=== PATIENT | male | born 1990 | race American Indian/Alaskan Native ===

== ENCOUNTER 2022-02-14 14:38 | Emergency (ER) | payer MEDICAID, SELFPAY ==
[2022-02-14 14:46] VITALS: BP 155/95; PULSE 85; RESP 16; TEMP 37.3; O2SAT 100
--- NOTE | 2022-02-14 15:01 | ED.URI ---
HPI - URI/Sore Throat General Chief Complaint: Upper Respiratory Infection Stated Complaint: Congestion/Sore Throat Time Seen by Provider: 02/14/22 15:02 Source: patient, RN notes reviewed and old records reviewed Mode of arrival: ambulatory Limitations: no limitations History of Present Illness HPI Narrative: 31 year old male presents to express care with complaints of sinus pressure, sinus headache since yesterday, Patient reports that he has sinus drainage but denies any known cough or any fevers.Patient reports that he has been taking DayQuil and NyQuil for his symptoms. Patient reports that he has had COVID in 2019, has not had COVID vaccinations or any flu shot. Patient states that his sinus pressure is 4/10 in his face and frontal headache pain. Patient reports that he has been taking DayQuil and NyQuil for his symptoms with no relief. Related Data Home Medications Medication Instructions Recorded Confirmed No Home Medications 02/14/22 02/14/22 Allergies Allergy/AdvReac Type Severity Reaction Status Date / Time No Known Allergies Allergy Unverified 02/14/22 14:54 Review of Systems Review of Systems: CONSTITUTIONAL: Denies any known fevers, chills, or sweats. EYES: Denies visual changes, redness, or discharge. ENT: Positive for rhinorrhea, congestion, no sore throat, or otalgia. CARDIOVASCULAR: Denies chest pain, palpitations, or edema. RESPIRATORY: Denies cough or dyspnea. GASTROINTESTINAL: Denies abdominal pain, nausea, vomiting, or diarrhea. GENITOURINARY: Denies dysuria or hematuria. SKIN: Denies rash or itching. MUSCULOSKELETAL: Denies back pain, joint pain, or myalgia. NEUROLOGIC: Positive for frontal headache,no numbness, or weakness. PSYCHIATRIC: Denies anxiety or depression. All systems reviewed & are unremarkable except as noted in HPI and below PMFSH Past Medical History Medical History (Updated 02/16/22 @ 13:56 by Jenni Major NP) COVID-2019 Surgical History Surgical History (Updated 02/14/22 @ 15:29 by Jenni Major NP) No history of previous surgery Family History Family History (Updated 02/14/22 @ 15:30 by Jenni Major NP) Grandparent Hypertension Mother Hypertension Social History Social History (Updated 04/15/22 @ 15:30 by Jenni Major NP) Tobacco type: e-cigarettes/vaping Alcohol intake: never Substance use: never Living arrangements: with family Gender identity (if verbalized by the patient): Male Comments At time of signature, agree with nursing past medical, surgical, social and family history. There is no relevant family history pertinent to the presenting complaint Exam Narrative: GENERAL: Well-appearing, well-nourished, and in no acute distress. HEAD: Normocephalic, atraumatic. EYES: PERRLA and EOMI. ENT: Nares red with clear rhinorrhea no epistaxis. Mucous membranes moist.TM's normal with good light reflex, throat pink with no lesions or exudates or tonsil swelling NECK: Supple. no lymphadenopathy CHEST: Clear to auscultation. No respiratory distress.[id number]% on room air HEART: Regular rate and rhythm. No murmur heard. Normal peripheral pulses. ABDOMEN: Soft, nontender, nondistended, normal active bowel sounds. EXTREMITIES: Normal range of motion. No edema. SKIN: Warm, dry, no rash. NEURO: No focal deficits. Alert and oriented x3. Course Course Level of Care: Express Care Visit Vital Signs Vital signs: Vital Signs Temperature 37.3 C 02/14/22 14:46 Pulse Rate 85 02/14/22 14:46 Respiratory Rate 16 02/14/22 14:46 Blood Pressure 155/95 H 02/14/22 14:46 Pulse Oximetry 100 02/14/22 14:46 Temperature 37.3 C 02/14/22 14:46 Pulse Rate 85 02/14/22 14:46 Respiratory Rate 16 02/14/22 14:46 Blood Pressure 155/95 H 02/14/22 14:46 Pulse Oximetry 100 02/14/22 14:46 MDM - URI/Sore Throat Differential Diagnosis Differential diagnosis: Likely upper respiratory infection, sinusitis, viral infec
== END 2022-02-14 15:20 | disposition home or self-care (01) ==
PROVIDERS: Emergency Provider Registered Nurse
DX: J06.9 Acute upper respiratory infection, unspecified (principal); Z86.16 Personal history of COVID-19
CPT/HCPCS: 99202; G0463